=== PATIENT | female | born 1995 ===

== ENCOUNTER 2022-02-15 09:12 | Outpatient (CLI) | payer OTHER | END 2022-02-15 10:40 | disposition home or self-care (01) | LOC: PRENATAL 09:12 | PROVIDERS: ATTEND Obstetrics & Gynecology Maternal & Fetal Medicine | DX: O35.0XX0 Maternal care for (suspected) central nervous system malformation in fetus, not applicable or unspecified (principal); O35.3XX0 Maternal care for (suspected) damage to fetus from viral disease in mother, not applicable or unspecified; Z3A.21 21 weeks gestation of pregnancy; H91.91 Unspecified hearing loss, right ear; Z91.040 Latex allergy status ==

== ENCOUNTER 2022-03-22 13:19 | Outpatient (CLI) | payer OTHER ==
[2022-03-22] MEDS ORDERED: PRENATAL CAPLE1 EAC1 PO (13:28)
[2022-03-22] MEDS ORDERED: IRON325 MG PO (13:29)
[2022-03-22] MEDS ORDERED: FOLIC ACID20 MG PO (13:29)
== END 2022-03-23 10:05 | disposition home or self-care (01) ==
LOC: OBS/DEL 13:19
PROVIDERS: ATTEND Obstetrics & Gynecology
DX: O26.892 Other specified pregnancy related conditions, second trimester (principal); Z3A.26 26 weeks gestation of pregnancy; R10.2 Pelvic and perineal pain; Z91.040 Latex allergy status

== ENCOUNTER 2022-04-03 15:36 | Outpatient (CLI) | payer OTHER ==
[~2022-04-03 15:36] MED LIST: FOLIC ACID20 MG PO; IRON325 MG PO; PRENATAL CAPLE1 EAC1 PO
== END 2022-04-04 11:15 | disposition home or self-care (01) ==
LOC: OBS/DEL 15:36
PROVIDERS: ATTEND Obstetrics & Gynecology
DX: O26.892 Other specified pregnancy related conditions, second trimester (principal); Z3A.27 27 weeks gestation of pregnancy; R10.2 Pelvic and perineal pain

== ENCOUNTER 2022-04-30 13:15 | Outpatient (CLI) | payer OTHER | END 2022-05-01 09:53 | disposition home or self-care (01) | LOC: OBS/DEL 13:15 | PROVIDERS: ATTEND Obstetrics & Gynecology | DX: O47.03 False labor before 37 completed weeks of gestation, third trimester (principal); Z3A.33 33 weeks gestation of pregnancy ==

== ENCOUNTER 2022-05-16 20:45 | Inpatient (IN) | payer OTHER ==
[~2022-05-16] VITALS: Ht 149.9 cm; Wt 57.6 kg
== END 2022-05-20 11:11 | disposition home or self-care (01) | DRG 833 ==
LOC: LDR 20:45 → OB/GYN 05-18 10:23
PROVIDERS: ADMIT Obstetrics & Gynecology; ATTEND Obstetrics & Gynecology
PROC: 4A1HXCZ Monitoring of Products of Conception, Cardiac Rate, External Approach (ICD-10-PCS; principal; 2022-05-16)
PROC: BY4FZZZ Ultrasonography of Third Trimester, Single Fetus (ICD-10-PCS; 2022-05-16)
DX: O47.03 False labor before 37 completed weeks of gestation, third trimester (principal); O24.410 Gestational diabetes mellitus in pregnancy, diet controlled; Z3A.34 34 weeks gestation of pregnancy; Z20.822 Contact with and (suspected) exposure to COVID-19

== ENCOUNTER 2022-06-07 14:33 | Outpatient (CLI) | payer OTHER ==
[~2022-06-07] VITALS: Ht 149.9 cm; Wt 57.6 kg
== END 2022-06-08 11:49 | disposition home or self-care (01) ==
LOC: OBS/DEL 14:33
PROVIDERS: ATTEND Obstetrics & Gynecology
DX: O26.893 Other specified pregnancy related conditions, third trimester (principal); Z3A.38 38 weeks gestation of pregnancy; R10.2 Pelvic and perineal pain

== ENCOUNTER 2022-06-12 15:54 | Outpatient (CLI) | payer OTHER ==
[2022-06-12] MEDS ORDERED: PRENATABS RX T1 EACH PO (17:20)
== END 2022-06-13 10:57 | disposition home or self-care (01) ==
LOC: OBS/DEL 15:54
PROVIDERS: ATTEND Obstetrics & Gynecology
DX: O24.419 Gestational diabetes mellitus in pregnancy, unspecified control (principal); O47.1 False labor at or after 37 completed weeks of gestation; Z3A.38 38 weeks gestation of pregnancy

== ENCOUNTER 2022-06-17 10:16 | Inpatient (IN) | payer OTHER ==
[~2022-06-17] VITALS: Ht 149.9 cm; Wt 58.1 kg
[~2022-06-17 10:16] MED LIST changes: +PRENATABS RX T1 EACH PO
[2022-06-17] MEDS ORDERED: PRENATAL TABLE1 EAC1 PO (10:47)
[2022-06-19] MEDS ORDERED: PRENATAL + DHA1 EAC1 (08:06)
== END 2022-06-19 13:52 | disposition home or self-care (01) | DRG 807 ==
LOC: LDR 10:16 → OB/GYN 10:16 → LDR 12:30 → OB/GYN 06-18 02:13
PROVIDERS: ADMIT Obstetrics & Gynecology; ATTEND Obstetrics & Gynecology
PROC: 10E0XZZ Delivery of Products of Conception, External Approach (ICD-10-PCS; principal; 2022-06-17)
PROC: 0W8NXZZ Division of Female Perineum, External Approach (ICD-10-PCS; 2022-06-17)
PROC: 4A1HXCZ Monitoring of Products of Conception, Cardiac Rate, External Approach (ICD-10-PCS; 2022-06-17)
DX: O80 Encounter for full-term uncomplicated delivery (principal); Z37.0 Single live birth; Z3A.38 38 weeks gestation of pregnancy; Z20.822 Contact with and (suspected) exposure to COVID-19

== ENCOUNTER 2022-09-30 04:44 | Day surgery (SDC) | payer OTHER ==
[~2022-09-30 04:44] MED LIST changes: +PRENATAL + DHA1 EAC1; +PRENATAL TABLE1 EAC1 PO
== END 2022-09-30 11:20 | disposition home or self-care (01) ==
LOC: CIR.AMB 04:44
PROVIDERS: ATTEND Obstetrics & Gynecology
DX: R10.2 Pelvic and perineal pain (principal); N70.91 Salpingitis, unspecified; Z91.040 Latex allergy status; F17.210 Nicotine dependence, cigarettes, uncomplicated; F12.90 Cannabis use, unspecified, uncomplicated

== ENCOUNTER → 2023-05-09 | Emergency (ER) | payer OTHER ==
[~2023-05-09] VITALS: Ht 149.9 cm; Wt 47.2 kg
== END | disposition home or self-care (01) ==
LOC: ER 10:45
DX: S93.401A Sprain of unspecified ligament of right ankle, initial encounter (principal); W18.30XA Fall on same level, unspecified, initial encounter; Y93.89 Activity, other specified; Y92.89 Other specified places as the place of occurrence of the external cause; Y99.9 Unspecified external cause status; Z91.040 Latex allergy status